=== PATIENT | female | born 1950 | race Caucasian/White ===

== ENCOUNTER → 2016-11-07 | Outpatient (CLI) | payer MEDICARE, BC ==
--- NOTE | 2016-11-07 14:07 | BD ---
EXAMINATION TYPE: MG DEXA axial skeleton. DATE OF EXAM: 11/07/2016 COMPARISON: NONE CLINICAL HISTORY: Z78.0 post menopausal Height: 63 Weight: 136.2 FRAX RISK QUESTIONS: Alcohol (3 or more units per day): NO Family History (Parent hip fracture): YES /MOTHER Glucocorticoids (More than 3mos): NO (Ex: prednisone, prednisolone, methylprednisolone, dexamethasone, and hydrocortisone). History of Fracture in Adulthood: NO Secondary Osteoporosis: 1. Type 1 Diabetes: NO 2. Hyperthyroidism: NO 3. Menopause before 45: NO 4. Malnutrition: NO 5. Chronic liver disease: NO Rheumatoid Arthritis: NO Current Tobacco Use: NO RISK FACTORS HISTORY OF: Hip Fracture (Right/Left): NO Spine Fracture: NO History of Wrist Fracture: NO Surgery to Spine/Hip(right/left)/Wrist (right/left): NO Family History of Osteoporosis: YES Active: YES Diet low in dairy products/other sources of calcium: YES Postmenopausal woman: AGE 50 Lost more than 2 inches in height since high school: NO Frequent falls: NO Poor Health: NO Hyperparathyroidism: NO Adrenal Insufficiency: NO MEDICATIONS: ADAVAN, TOPOROL, VIT D, Thyroid Medications: LEVATHYROXINE How Lon YEARS Osteoporosis Medications: ALENDRONATE How Lon YEARS EXAM MEASUREMENTS: Bone mineral densitometry was performed using the [employer] System. Bone mineral density as measured about the Lumbar spine is: ----- L1-L4(G/cm2): 1.021 T Score Values are as follows: ----- L2: -2.1 ----- L3: -1.0 ----- L4: -0.2 ----- L1-L4: -1.3 Bone mineral density has: INCREASED 1.4 % since study of06.03.2014 Bone mineral density about the R hip (g/cm2): 0.833 Bone mineral density about the L hip (g/cm2): 0.783 T Score values are as follows: -----R Neck: -1.5 -----L Neck: -1.7 -----R Total: -1.4 -----L Total: -1.7 Bone mineral density has: INCREASED 0.9 % since study of: 06.03.2014 Bone mineral density about the R Wrist (g/cm2): Bone mineral density about the L Wrist (g/cm2): T Score values are as follows: -----Dist. R+U: -----Prox. R+U: -----Radius total: Bone mineral density has: % since study of: IMPRESSION: Osteopenia NOTE: T-SCORE=SD OF THE YOUNG ADULT MEAN.
--- NOTE | 2016-11-08 11:13 | MM ---
Reason for exam: screening (asymptomatic). Last mammogram was performed 1 year and 2 months ago. History: Patient is postmenopausal. Family history of breast cancer in maternal aunt. Physical Findings: A clinical breast exam by your physician is recommended on an annual basis and results should be correlated with mammographic findings. MG Screening Mammo w CAD Bilateral CC and MLO view(s) were taken. Prior study comparison: August 28, 2015, bilateral MG 3d screening mammo w/cad. July 19, 2014, mammogram, performed at [facility]. The breast tissue is heterogeneously dense. This may lower the sensitivity of mammography. There is no discrete abnormality. ASSESSMENT: Negative, BI-RAD 1 RECOMMENDATION: Routine screening mammogram of both breasts in 1 year.
== END | disposition home or self-care (01) ==
LOC: RADMAMWWP 13:11
PROVIDERS: ATTEND Family Medicine
DX: Z12.31 Encounter for screening mammogram for malignant neoplasm of breast (principal); M85.80 Other specified disorders of bone density and structure, unspecified site; E28.319 Asymptomatic premature menopause
CPT/HCPCS: 77080; G0202

== ENCOUNTER 2017-04-01 07:14 | Day surgery (SDC) | payer MEDICARE, BC, OTHER ==
[2017-03-24 12:10] VITALS: BMI 24.7
[~2017-04-01 07:14] MED LIST: LACTATED RINGERS 1,000 ML IV SCH
[2017-04-01] MEDS ORDERED: ONDANSETRON 4 MG/2 ML VIAL IVP STA (07:59)
[2017-04-01 08:07] VITALS: RESP 18; TEMP 97.9
[2017-04-01] MEDS: CYCLOPENTOLATE 1% OPHTH SOLN 2 ML BTL OP ONE ×3 (08:09→08:30)
[2017-04-01] MEDS: FLURBIPROFEN 0.03% OPHTH DROPS 2.5 ML BTL OP ONE ×3 (08:12→08:33)
[2017-04-01] MEDS: PHENYLEPHRINE 10% OPHTH DROPS 5 ML BTL OP ONE ×3 (08:16→08:37)
[2017-04-01] MEDS ORDERED: PROPOFOL 10 MG/ML 20 ML VIAL IV ONE (08:53)
[2017-04-01] MEDS ORDERED: TIMOLOL 0.5% OPHTH DROPS 5 ML BTL ONE (09:00)
[2017-04-01] MEDS ORDERED: BALANCED SALT IRRIG SOLN COMB2 15 ML IRRIG.SOLN INTRAOCULA ONE (09:06)
[2017-04-01] MEDS ORDERED: HYALURONATE SODIUM INTRAOCULAR 1 EACH SYRINGE (10MG/ML) INTRAOCULA ONE (09:06)
[2017-04-01] MEDS ORDERED: EPINEPHrine (PF) 0.5 ML in BALANCED SALT IRRIG SOLN COMB2 500 ML IRRIGATION ONE (09:07)
--- NOTE | 2017-04-01 09:15 | P.OP ---
Date of Procedure: 04/01/17 Procedure(s) Performed: PREOPERATIVE DIAGNOSIS: Cataract, left eye. POSTOPERATIVE DIAGNOSIS: Cataract, left eye. OPERATION: Phacoemulsification cataract, left eye. DESCRIPTION OF PROCEDURE: The patient was taken to the preoperative holding area. Intravenous Propofol was given so as to bring about adequate sedation. The following mixture was given for local anesthesia: 5 mL of 2% lidocaine, 5 mL of 0.75% Marcaine, and 1 mL of Wydase. Approximately 4 mL was injected in the retrobulbar space of the surgical eye. Additional 1 mL was then directed to the temporal area of the surgical eye. This was performed to allow adequate neurological block of the facial muscles. The patient was revived and then taken into the operative room. The patient was prepped and draped in the usual sterile manner for the operative eye. A lid speculum was put into position. The conjunctiva was resected back from the limbus in the 12 o'clock position. Bleeding was controlled with electrocautery. A #69 blade was then used and a half-thickness scleral incision approximately 1-mm posterior to the limbus was made on bare sclera. This was shelved in the clear cornea using a crescent knife. Next a 15-degree blade was used to make a stab incision at the 3 o' clock position at the corneolimbal interface. Keratome blade was then used and the superior wound was extended into the anterior chamber. Viscoelastic was injected into the anterior chamber and to maintain its form. Next, a cystotome was used and a continuous anterior capsulotomy was made without difficulty. Hydrodissection using a blunt cannula and BSS was performed. Phaco probe was then employed and a groove extending from 12 to 6 o'clock in the lens was created. A Elian wand was used through the stab incision so as to perform a divide and conquer technique. Next an irrigation aspiration probe was utilized and any residual cortex was removed from the eye. Again, viscoelastic was injected into the anterior chamber. An Ciro Restor 2.5 posterior chamber lens implant was placed in the cartridge and injected into the anterior chamber without difficulty. The Sinskey hook was utilized to spin the lens into position and this was again performed without any difficulty. The irrigation and aspiration probe was again employed and any residual viscoelastic was removed from the eye. Then BSS was injected into the limbal stab incision and the anterior chamber re-inflated. The conjunctiva was reapproximated using electrocautery. One drop of 0.25% Timoptic was placed over the corneal along with TobraDex ophthalmic ointment. Two sterile patches and a Hargrove eye shield were taped into position. The patient was transported to the recovery room in stable condition. Pathology: none sent Condition: stable Disposition: same day
[2017-04-01 09:36] VITALS: BP 125/82; PULSE 56
[2017-04-01] MEDS ORDERED: GENTAMICIN/PREDNISOL AC OPHTH OINT 3.5GM OPHTHALMIC ONE (23:00)
[2017-04-01] MEDS ORDERED: BUPIVACAINE (PF) 0.75% 5 ML, HYALURONIDASE, HUMAN RECOMB 150 UNIT, LIDOCAINE 2% (PF) 10... MISCELLANE ONE ×3 (23:00)
[2017-04-01] MEDS ORDERED: TIMOLOL 0.5% OPHTH DROPS 5 ML BTL OP ONE (23:00)
== END 2017-04-01 09:54 | disposition home or self-care (01) ==
LOC: OR 07:14
PROVIDERS: ATTEND Ophthalmology
DX: H26.9 Unspecified cataract (principal); I49.9 Cardiac arrhythmia, unspecified; I48.91 Unspecified atrial fibrillation; Z79.82 Long term (current) use of aspirin; Z79.899 Other long term (current) drug therapy; Z88.2 Allergy status to sulfonamides
CPT/HCPCS: 66984; V2632; V2788; J3470; J2001; J2405; J0171; J2704

== ENCOUNTER 2017-06-28 17:46 | Emergency (ER) | payer MEDICARE, BC ==
[2017-06-28 17:52] VITALS: RESP 18
[2017-06-28] MEDS ORDERED: diphenhydrAMINE 50 MG/ML 1 ML VIAL IVP STA (18:38)
[2017-06-28] MEDS ORDERED: ACETAMINOPHEN TAB 500 MG TAB PO STA (18:38)
[2017-06-28] MEDS ORDERED: SODIUM CHLORIDE 0.9% 1,000 ML IV STA (18:38)
[2017-06-28] MEDS ORDERED: METOCLOPRAMIDE 5 MG/ML 2 ML VIAL IVP STA (18:38)
--- NOTE | 2017-06-28 18:40 | ED ---
Headache HPI - General Chief Complaint: Headache Stated Complaint: headache Time Seen by Provider: 06/28/17 18:29 Mode of arrival: ambulatory Limitations: no limitations - History of Present Illness Initial Comments: Patient is a 67-year-old female with a past medical history of chronic migraines that presents to emergency department for evaluation of headache. Patient states that she started to have a headache on Friday which resolved and then it came back on . At that time, she took sumatriptan and Fioricet and that again resolved the headache. However, she again gradually had a right- sided headache that started this morning and is associated with nausea. She says that characteristics of the headache is typical but the intensity is a little bit worse normal. The pain feels a burning sensation and it is not associated with any lightheadedness, dizziness, changes in vision, neck pain, chest pain, shortness of breath, vomiting or diarrhea - Related Data Home Medications Medication Instructions Recorded Confirmed Alendronate Sodium 70 mg PO MO 03/24/17 06/28/17 Aspirin EC [Ecotrin] 325 mg PO HS 03/24/17 06/28/17 Calcium Carbonate/Vitamin D3 2 each PO BID 03/24/17 06/28/17 [Caltrate 600 Plus D3 Tablet] Cholecalciferol (Vitamin D3) 50,000 unit PO MANZO 03/24/17 06/28/17 [Vitamin D3] Levothyroxine Sodium [Synthroid] 125 mcg PO QAM 03/24/17 06/28/17 Metoprolol Succinate (ER) [Toprol 25 mg PO HS 03/24/17 06/28/17 Xl] Multivit with Calcium,Iron,Min 1 each PO DAILY 03/24/17 06/28/17 [Women's Multivitamin] Pinedale-3 Fatty Acids [Pinedale-3] 1,000 mg PO DAILY 03/24/17 06/28/17 Allergies Allergy/AdvReac Type Severity Reaction Status Date / Time Sulfa (Sulfonamide Allergy Rash/Hives Verified 06/28/17 17:52 Antibiotics) Review of Systems ROS Statement: Those systems with pertinent positive or pertinent negative responses have been documented in the HPI. Constitutional: Negative for chills, fatigue and fever. HENT: Negative for congestion. Respiratory: Negative for chest tightness, shortness of breath and wheezing. Negative for cough Cardiovascular: Negative for chest pain and palpitations. Gastrointestinal: Negative for abdominal pain. Negative for abdominal distention , diarrhea, and vomiting. Positive for nausea Genitourinary: Negative for dysuria. Musculoskeletal: Negative for back pain, neck pain and neck stiffness. Skin: Negative for color change. Neurological: Negative for dizziness, speech difficulty, weakness and light- headedness. Positive for headache Psychiatric/Behavioral: Negative for agitation and confusion. The patient is not nervous/anxious. ROS Other: All systems not noted in ROS Statement are negative. Past Medical History Past Medical History: Atrial Fibrillation, Thyroid Disorder Additional Past Medical History / Comment(s): migraines headache, paroxysmal atrial fibrillation,MNG,hypothyroidism. History of Any Multi-Drug Resistant Organisms: None Reported Additional Past Surgical History / Comment(s): oopherectomy Past Anesthesia/Blood Transfusion Reactions: No Reported Reaction Additional Past Anesthesia/Blood Transfusion Reaction / Comment(s): NEVER HAD TRANSFUSION Past Psychological History: No Psychological Hx Reported Smoking Status: Never smoker - Past Family History Mother Family Medical History: Hypertension Additional Family Medical History / Comment(s): FROM AMOLOIDOSIS- VITAL ORGAN SHUTDOWN Father Family Medical History: COPD, Deep Vein Thrombosis (DVT) Sister(s) Family Medical History: Cancer Additional Family Medical History / Comment(s): non hodgkins lymphoma Daughter(s) Family Medical History: No Reported History (One daughter no major medical problems.) Son(s) Family Medical History: No Reported History (One son no major medical problem.) General Exam - General Exam Comments Initial Comments: Constitutional: Pt is oriented to person, place, and time. Pt appears well- developed and well-nourished. No distress. HENT: Head: Normocephalic and atraumatic. Eyes: EOM are normal. Neck: Normal range of motion. Neck supple. Cardiovascular: Normal rate, regular rhythm, S1 normal, S2 normal and normal heart sounds. Exam reveals no gallop and no friction rub. No murmur heard. Pulmonary/Chest: Effort normal and breath sounds normal. No tachypnea and no bradypnea. No respiratory distress. No wheezes or rales noted. Abdominal: Soft. Bowel sounds are normal. Pt exhibits no shifting dullness, no distension, no pulsatile liver, no fluid wave, no abdominal bruit and no ascites. There is no tenderness. There is no rigidity, no rebound, no guarding, no tenderness at McBurney's point and negative Martínez's sign. Musculoskeletal: Normal range of motion. Neurological: Pt is alert and oriented to person, place, and time. No cranial nerve deficit. Skin: Skin is warm and dry. No rash noted. Pt is not diaphoretic. No erythema. No pallor. Psychiatric: Pt has a normal mood and affect. Pt behavior is normal. Thought content normal. Limitations: no limitations Course Vital Signs 06/28/17 17:49 Temperature 98.6 F Pulse Rate 88 Respiratory 18 Rate Blood Pressure 161/71 O2 Sat by Pulse 98 Oximetry Medical Decision Making - Medical Decision Making Patient was given fluids as well as Reglan and Benadryl and stated that the symptoms completely disappeared. Because this was not a thunderclap headache and the symptoms were typical of her prior migraine, it was felt that CT imaging of the head was not necessary. However, the risk of foregoing imaging was discussed with the patient and her and it was mutually agreed upon that there was a low likelihood that this is an emergent pathology such as subarachnoid hemorrhage and that all parties felt comfortable not pursuing advanced imaging. The patient and her were vigorously counseled to return to the emergency department if the headache returned and worsened and/or she started experiencing symptoms such as but not limited to, blurry vision, dizziness, other neurologic deficits. Patient and expressed understanding. She was also advised that she should follow up with her PCP on Friday which she was agreeable to. Disposition Clinical Impression: Headache Disposition: HOME SELF-CARE Condition: Good Instructions: Acute Headache (ED) Is patient prescribed a controlled substance at d/c from ED?: No Referrals: Lowell Llanes DO [Primary Care Provider] - 1-2 days Time of Disposition: 20:00
[2017-06-28 20:24] VITALS: BP 111/59; PULSE 78; TEMP 98
== END 2017-06-28 20:24 | disposition home or self-care (01) ==
LOC: EC 17:46
DX: R51 Headache (principal); R11.0 Nausea; R20.8 Other disturbances of skin sensation; E03.9 Hypothyroidism, unspecified; Z86.69 Personal history of other diseases of the nervous system and sense organs; Z88.2 Allergy status to sulfonamides; Z79.82 Long term (current) use of aspirin; Z79.899 Other long term (current) drug therapy
CPT/HCPCS: 99283; 96374; 96375; 96361; J1200; J2765

== ENCOUNTER → 2017-11-10 | Outpatient (CLI) | payer MEDICARE, BC ==
--- NOTE | 2017-11-12 09:50 | MM ---
Reason for exam: screening (asymptomatic). Last mammogram was performed 1 year ago. History: Patient is postmenopausal. Family history of breast cancer in maternal aunt. Physical Findings: A clinical breast exam by your physician is recommended on an annual basis and results should be correlated with mammographic findings. MG 3D Screening Mammo W/Cad Bilateral CC and MLO view(s) were taken. Prior study comparison: November 07, 2016, bilateral MG screening mammo w CAD. August 28, 2015, bilateral MG 3d screening mammo w/cad. The breast tissue is heterogeneously dense. This may lower the sensitivity of mammography. There is no discrete abnormality. ASSESSMENT: Negative, BI-RAD 1 RECOMMENDATION: Routine screening mammogram of both breasts in 1 year.
== END | disposition home or self-care (01) ==
LOC: RADMAMWWP 09:23
PROVIDERS: ATTEND Family Medicine
DX: Z12.31 Encounter for screening mammogram for malignant neoplasm of breast (principal)
CPT/HCPCS: 77063; 77067

== ENCOUNTER → 2019-01-14 | Outpatient (CLI) | payer MEDICARE, BC ==
--- NOTE | 2019-01-15 07:14 | BD ---
EXAMINATION TYPE: Axial Bone Density DATE OF EXAM: 01/14/2019 COMPARISON: 2017 CLINICAL HISTORY: M 81.0 Height: 5 FT 2 IN Weight: 129 FRAX RISK QUESTIONS: Family History (Parent hip fracture): YES History of Fracture in Adulthood: YES Secondary Osteoporosis: RISK FACTORS HISTORY OF: Active: YES Postmenopausal woman: AGE 50 Take estrogen and/or progesterone medications: TOOK HRT NOT SURE HOW LONG NO LONGER TAKES MEDICATIONS: Thyroid Medications: YES Which medication: SYNTHROID How Lon YEARS Additional Medications: METOPROLOL, SYNTHROID, ECOTRIN, LORAZAPAM, B COMPLEX, FISH OIL,CALTRATE, MUL TI VIT Additional History: HAS BEEN ON ALDRONATE FOR 3 YEARS EXAM MEASUREMENTS: Bone mineral densitometry was performed using the [employer]. Bone mineral density as measured about the Lumbar spine is: ----- L1-L4(G/cm2): 1.036 T Score Values are as follows: ----- L2: -1.9 ----- L3: -1.5 ----- L4: 0.6 ----- L1-L4: -1.2 Bone mineral density has: INCREASED 1.9 % since study of: 2017 Bone mineral density about the R hip (g/cm2): 0.834 Bone mineral density about the L hip (g/cm2): 0.803 T Score values are as follows: -----R Neck: -1.5 -----L Neck: -1.7 -----R Total: -1.5 -----L Total: -1.7 Bone mineral density has: DECREASED -1.0 % since study of: 2017 IMPRESSION: Osteopenia (T Score between -2.5 and -1). There is slightly increased risk of fracture and the patient may be considered for treatment. Re-Screen 2-5 years. NOTE: T-SCORE=SD OF THE YOUNG ADULT MEAN.
--- NOTE | 2019-01-15 10:54 | MM ---
Reason for exam: screening (asymptomatic). Last mammogram was performed 1 year and 2 months ago. History: Patient is postmenopausal. Family history of breast cancer in maternal aunt. Physical Findings: A clinical breast exam by your physician is recommended on an annual basis and results should be correlated with mammographic findings. MG 3D Screening Mammo W/Cad Bilateral CC and MLO view(s) were taken. Prior study comparison: November 10, 2017, bilateral MG 3d screening mammo w/cad. November 07, 2016, bilateral MG screening mammo w CAD. The breast tissue is heterogeneously dense. This may lower the sensitivity of mammography. There is no discrete abnormality. No significant changes when compared with prior studies. ASSESSMENT: Negative, BI-RAD 1 RECOMMENDATION: Routine screening mammogram of both breasts in 1 year.
== END | disposition home or self-care (01) ==
LOC: RADMAMWWP 08:06
PROVIDERS: ATTEND Family Medicine
DX: Z12.31 Encounter for screening mammogram for malignant neoplasm of breast (principal); M85.80 Other specified disorders of bone density and structure, unspecified site
CPT/HCPCS: 77063; 77067; 77080

== ENCOUNTER → 2020-03-16 | Outpatient (CLI) | payer MEDICARE, BC ==
--- NOTE | 2020-03-17 14:31 | MM ---
Reason for exam: screening (asymptomatic). Last mammogram was performed 1 year and 2 months ago. History: Patient is postmenopausal. Family history of breast cancer in maternal aunt. Physical Findings: A clinical breast exam by your physician is recommended on an annual basis and results should be correlated with mammographic findings. MG 3D Screening Mammo W/Cad Bilateral CC and MLO view(s) were taken. Prior study comparison: January 14, 2019, bilateral MG 3d screening mammo w/cad. November 10, 2017, bilateral MG 3d screening mammo w/cad. The breast tissue is heterogeneously dense. This may lower the sensitivity of mammography. There is no discrete abnormality. ASSESSMENT: Negative, BI-RAD 1 RECOMMENDATION: Routine screening mammogram of both breasts in 1 year.
== END | disposition home or self-care (01) ==
LOC: RADMAMWWP 15:48
PROVIDERS: ATTEND Family Medicine
DX: Z12.31 Encounter for screening mammogram for malignant neoplasm of breast (principal)
CPT/HCPCS: 77063; 77067

== ENCOUNTER → 2022-03-12 | Outpatient (CLI) | payer MEDICARE ==
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
== END | disposition home or self-care (01) ==
LOC: RADXRMAIN 09:44
PROVIDERS: ATTEND Family Medicine
DX: S02.2XXA Fracture of nasal bones, initial encounter for closed fracture (principal); S13.4XXA Sprain of ligaments of cervical spine, initial encounter; M47.812 Spondylosis without myelopathy or radiculopathy, cervical region; M43.12 Spondylolisthesis, cervical region; M99.71 Connective tissue and disc stenosis of intervertebral foramina of cervical region; R07.9 Chest pain, unspecified; V89.2XXA Person injured in unspecified motor-vehicle accident, traffic, initial encounter
CPT/HCPCS: 70160; 71046; 72050

== ENCOUNTER → 2022-03-21 | Outpatient (CLI) | payer OTHER, MEDICARE ==
[2022-03-21 17:06] LABS: African American GFR (CKD) >90 (>60 ml/min/1.73 sqM); Blood Urea Nitrogen 23 mg/dL (7-17); Non-African American GFR(CKD) 82 (>60 ml/min/1.73 sqM)
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
== END | disposition home or self-care (01) ==
LOC: RADCTMAIN 16:32
PROVIDERS: ATTEND Family Medicine
DX: S13.4XXA Sprain of ligaments of cervical spine, initial encounter (principal)
CPT/HCPCS: 82565; 84520; 70460; 36415; Q9967

== ENCOUNTER 2022-06-04 06:52 | Day surgery (SDC) | payer OTHER ==
[2022-05-31 15:43] VITALS: BMI 21.2
[~2022-06-04 06:52] MED LIST changes: +LIDOCAINE 1% (10MG/ML) FOR IV START INTRADERMA PRN
[2022-06-04 07:20] VITALS: TEMP 97.7
[2022-06-04] MEDS ORDERED: fentaNYL (PF) 50 MCG/ML 2 ML AMP ONE (07:47)
[2022-06-04] MEDS ORDERED: MIDAZOLAM 2 MG/2 ML VIAL ONE (07:47)
[2022-06-04] MEDS ORDERED: methylPREDNISolone ACETATE 40 MG/ML 1 ML VIAL ONE (07:47)
[2022-06-04] MEDS ORDERED: IOPAMIDOL M200 10 ML VIAL ONE (07:47)
[2022-06-04] MEDS ORDERED: IV FLUID CONTINUATION 1,000 ML IV ONE (08:05)
[2022-06-04 08:09] VITALS: RESP 15
--- NOTE | 2022-06-04 08:17 | FL ---
Fluoroscopy History: BILAT TRANSFORAMINAL EPI INJ 5 sec fl time used .[id number] DAP --CS
[2022-06-04 08:34] VITALS: BP 121/70; PULSE 62
== END 2022-06-04 08:39 | disposition home or self-care (01) ==
LOC: ORPAIN 06:52
PROVIDERS: ATTEND Specialist
DX: M51.16 Intervertebral disc disorders with radiculopathy, lumbar region (principal); M47.26 Other spondylosis with radiculopathy, lumbar region; Z88.2 Allergy status to sulfonamides
CPT/HCPCS: 99152; 64483; J2250; J1030; J3010; Q9966

== ENCOUNTER → 2022-06-07 | Outpatient (CLI) | payer OTHER ==
--- NOTE | 2022-06-04 08:03 | P.PCN ---
Date of Procedure: 06/04/22 Procedure(s) Performed: PREOPERATIVE DIAGNOSIS: 1-Lumbar radiculopathy . 2-lumbar degenerative disc disease. 3-lumbar spondylosis with lumbar facet arthropathy without myelopathy POSTOPERATIVE DIAGNOSIS: 1-lumbar radiculopathy. 2-lumbar degenerative disc disease. 3-lumbar spondylosis with facet arthropathy without myelopathy PROCEDURE 1. Transforaminal epidural steroid injection under fluoroscopic guidance at bilateral L4-5 level. (Fluoroscopy images stored on file in the radiology Department ) 2. Lumbar epidurogram . ANESTHESIA: Local with 1% lidocaine 3 ml , moderate sedation with intravenous Versed 1 mg and fentanyle 50 micrograms. Sedation start time :0750 . Sedation. stop time : 0800 . EBL: Minimal PROCEDURE INDICATION: The patient with low back pain and radiculopathy symptoms unresponsive to conservative treatment. PROCEDURE DESCRIPTION / TECHNIQUE: The patient was seen and identified in the preoperative area. Risks, benefits, complications, and alternatives were discussed with the patient. The patient agreed to proceed with the procedure and signed the consent. IV was started, and vital signs were stable. Patient was taken to the OR and time out was completed. The patient was placed in the prone position on procedure table and a pillow was placed under the abdomen to reduce lumbar lordosis. The lumbosacral area was prepped and draped in the usual sterile fashion. Critical pause was taken. Vital signs were closely monitored during the procedure. Conscious sedation was used during the procedure to decrease patient s anxiety. Using oblique fluoroscopy, the chin of the `Bernarday dog at right L4-5 level was identified, and the skin and deeper tissues just below was localized with 1% lidocaine. Subsequently, a 22-gauge 3.5-inch spinal needle was advanced under a tunneled view fluoroscopic guidance just underneath the chin of the `Bernarday dog at the right L4-5 Under lateral fluoroscopy, the needle was then advanced to the posterior border of the interforaminal space. After negative aspiration of CSF and blood and with no paresthesias, 1 mL Isovue 200 contrast dye was injected excellent epidurogram and outlining of the nerve root Subsequently, 3 mL of block solution containing 20 mg Depo-Medrol and 2 mL of 0.9% normal saline PF was injected. Needle was removed and the same procedure was repeated at the left L4-5 level . At the end of the procedure, skin was cleansed, and bandages were applied. COMPLICATIONS:none DISPOSITION / PLANS: The patient was placed in a supine position and transferred to the recovery area in a stable condition for observation. There was no evidence of lower extremity motor or sensory deficit after the procedure. Patient was discharged from the recovery room after meeting discharge criteria. Home discharge instructions were given to the patient by the staff. The patient was reexamined prior to discharge.
--- NOTE | 2022-06-10 15:26 | MM ---
Reason for Exam: Screening (asymptomatic). Last screening mammogram was performed 12 month(s) ago. Patient History: Menarche at age 13. First Full-Term at age 21. Postmenopausal. Patient has history of breast feeding. Patient used Estrogen and Progesterone for 2 years. Maternal aunt had breast cancer. Risk Values: Christy 5 year model risk: 1.6%. NCI Lifetime model risk: 4.1%. Prior Study Comparison: 01/14/2019 Bilateral Screening Mammogram, [facility]. 03/16/2020 Bilateral Screening Mammogram, [facility]. 06/06/2021 Bilateral Screening Mammogram, [facility]. Tissue Density: There are scattered fibroglandular densities. Findings: Analyzed By CAD. Pattern appears symmetrical and stable. No significant interval change is evident. No suspicious groups of microcalcifications, spiculated or lobular masses, architectural distortion or other secondary signs of malignancy are mammographically apparent. Overall Assessment: Benign, BI-RAD 2 Management: Screening Mammogram of both breasts in 1 year. A negative mammogram report should not preclude additional follow up of suspicious palpable abnormalities. Patient should continue monthly self breast exam. A clinical breast exam by your physician is recommended on an annual basis and results should be correlated with mammographic findings. Electronically signed and approved by: Jerod Escalante D.O. Radiologis
== END | disposition home or self-care (01) ==
LOC: RADMAMWWP 07:49
PROVIDERS: ATTEND Family Medicine
DX: Z12.31 Encounter for screening mammogram for malignant neoplasm of breast (principal); Z78.0 Asymptomatic menopausal state; Z80.3 Family history of malignant neoplasm of breast
CPT/HCPCS: 77063; 77067

== ENCOUNTER → 2022-06-27 | Outpatient (CLI) | payer OTHER ==
[2022-06-27 11:24] VITALS: BP 111/61; PULSE 73; RESP 16; TEMP 98.2
--- NOTE | 2022-06-27 13:52 | P.PAINPG ---
PQRS Measure Charge Sheet Comment: A 72 yr old female with a history of severe and chronic LBP secondary to lumbar DDD and spondylosis with facet arthropathy without myelopathy presents today for evaluation s/p BL TFESI L4-L5. Pt states she experienced 75 % pain relief x 2-3 wks s/p procedure. Pain level is provoked at 6/10 in intensity, constant, localized in the lumbar spine, dull in character w shooting towards the L hip and LLE. Pain is provoked by sitting for periods of 30 min or more. Pain is alleviated with injections, medications, heat wraps, PT 6 weeks in February 21, massage therapy integrated with PT, repositioning and rest. Interventional pain procedures completed include BL TFESI L4-L5 Patient is currently on Tyl Arthritis Patient denies any side effects of the medication(s), denies excessive drowsiness or sleepiness, denies suicidal ideation and reports that the current pain medication is helping to control the pain and improve activities of daily living. Patient denies any motor or sensory deficits. Patient denies any fever or night sweats, denies any change in the bowel movements or urination. Physical Examination: -Constitutional: Cooperative. Not in acute distress . - Neurologic: Cranial nerve II to XII intact. No focal neurological deficits. - Psychatric: Alert & oriented x 3. Matching mood & appropriate affect. Judgment and insight intact. - Musculoskeletal: Cervical spine: Muscle bulk/ tone/ strength in the bilateral upper extremities normal Vertebral body tenderness to palpation over Spurling test positive Distraction test positive Facet loading test positive TTP Thoracic spine Muscle bulk / tone/ strength in the bilateral paraspinal muscles normal Vertebral body tender to palpation over Facet loading test positive TTP Lumbar spine: Motor bulk/ tone/ strength lower extremities , thigh and legs : 5/5 Deep tendon reflexes : Normal Knee Jerk. Normal Ankle Jerk . Vertebral body tenderness to palpation over L2 Lumbar Facet Loading Test positive Straight Leg Raise: positive at 30 degrees right side/ left side Gaenslen's Test positive Sacral spine : Severe tenderness over the Sacroiliac joint: right side / left side Range of motion: Flexion of the lumbar spine <60 degrees Range of motion: Extension of the lumbar spine <20 degrees Gaenslen's Test positive right side / left side Aleyda test: positive right side / left side Thigh Thrust Test positive right side / left side Sacral Thrust Test positive right side / left side Assessment and plan: Chronic LBP secondary to lumbar DDD, spondylosis with facet arthropathy without myelopathy Recommendation of L TFESI L1-L2 #2. May need additional injections for optimal pain relief. Risks, benefits of procedure discussed and pt verbalized understanding. Admits to anticoagulant use or medical history of diabetes. Protocol for discontinuation/ continuation of medications anamaria procedure discussed. All questions answered. I have spent less than 30 minutes on patient care today. Dr Dixon was available by phone for the evaluation of this patient. The time was used to review the medical records including relevant urine studies and Prescription history (MAPs), review of the available imaging, evaluation and examination of the patient, coordination of care with the medical staff and if applicable referring physicians, as well as creation of the medical record PQRS Narrative: Smoking Status Never smoker Hx Alcohol Use (MH) No Home Medications: Ambulatory Orders Alendronate Sodium 70 mg PO MANZO 03/24/17 Aspirin EC [Ecotrin] 325 mg PO HS 03/24/17 Metoprolol Succinate (ER) [Toprol Xl] 25 mg PO W/SUPPER 03/24/17 Biotin [Biotin Disolve] 5,000 mcg PO DAILY 05/31/22 Narinder/D3/Mag11/Zinc/[facility] Director/Mega/Bor [Caltrate 600+D Plus Tablet] 2 each PO DAILY 05/31/22 Ergocalciferol [Vitamin D2 (1250 Mcg = 00064 Iu)] 1,250 mcg PO MANZO 05/31/22 LORazepam 1 mg PO HS 05/31/22 Levothyroxine Sodium [Synthroid] 100 mcg PO QAM 05/31/22 Multivitamins, Thera [Multivitamin (formulary)] 1 tab PO DAILY 05/31/22 Triple [place] 3,6,9 1 tab PO TID-W/MEALS 05/31/22 Controlled Substance Measures - Controlled Substance Measures Is patient prescribed a controlled substance at discharge?: No
== END ==
LOC: PNWHC3 08:49
PROVIDERS: ATTEND Specialist
DX: M51.36 Other intervertebral disc degeneration, lumbar region (principal); M47.816 Spondylosis without myelopathy or radiculopathy, lumbar region; G89.29 Other chronic pain; Z79.82 Long term (current) use of aspirin; Z88.2 Allergy status to sulfonamides
CPT/HCPCS: 99211

== ENCOUNTER → 2022-07-31 | Outpatient (CLI) | payer OTHER ==
--- NOTE | 2022-07-31 15:28 | XR ---
EXAMINATION TYPE: XR cervical spine 3 views limited DATE OF EXAM: 07/31/2022 Comparison: 03/12/2022 Clinical History: 73-year-old female M50.30 Other cervical disc degeneration Findings: There is moderate degenerative disc disease C6-C7 and mild to moderate at C5-C6. Remaining disc space s are maintained. Degenerative trace grade 1 retrolisthesis C5-C6. Remaining alignment is maintained. There is facet an d uncovertebral joint arthropathy mid to lower cervical spine redemonstrated. No predental space wide ranjith or prevertebral soft tissue swelling. Impression: Moderate spondylotic change particularly at C6-C7. To a lesser extent at C5-C6 where there is also a trace grade 1 retrolisthesis.
== END | disposition home or self-care (01) ==
LOC: RADXRMAIN 08:42
PROVIDERS: ATTEND Physician Assistant Medical
DX: M50.323 Other cervical disc degeneration at C6-C7 level (principal); M47.812 Spondylosis without myelopathy or radiculopathy, cervical region; M43.12 Spondylolisthesis, cervical region
CPT/HCPCS: 72040

== ENCOUNTER → 2022-07-31 | Outpatient (CLI) | payer OTHER ==
[2022-07-31 08:49] VITALS: BP 128/71; PULSE 72; RESP 18; TEMP 97.8
--- NOTE | 2022-07-31 14:28 | P.PAINPG ---
PQRS Measure Charge Sheet Comment: A 72 yr old female with a history of severe and chronic LBP secondary to lumbar DDD and spondylosis with facet arthropathy without myelopathy presents today for LBP. Pt has had a BL RFA L4-L5, L5-S1 where she admits she experienced 100 % pain relief x 6 yrs s/p procedure in Jun 2015. Pain level is provoked at 6/10 in intensity, constant, localized in the BL lower lumbar spine, achy/ sharp in character w shooting towards the L hip. Pain is provoked by bending, and bearing weight on L side and walking for periods of 10 min or more. Pain is alleviated with PT w massage x 6 wks in Mar 2022, medications, patches, repositioning and rest. Pt also admits to lower neck pain, 8/10 in intensity, dull, achy, constant w radiation up the L side of neck towards the head. She admits to CESIs in 2018 which alleviated the pain at the time. Interventional pain procedures completed include BL TFESI L1-L2, BL RFA L2-L5 Patient is currently on Tyl Arthritis Patient denies any side effects of the medication(s), denies excessive drowsiness or sleepiness, denies suicidal ideation and reports that the current pain medication is helping to control the pain and improve activities of daily living. Patient denies any motor or sensory deficits. Patient denies any fever or night sweats, denies any change in the bowel movements or urination. Physical Examination: -Constitutional: Cooperative. Not in acute distress . - Neurologic: Cranial nerve II to XII intact. No focal neurological deficits. - Psychatric: Alert & oriented x 3. Matching mood & appropriate affect. Judgment and insight intact. - Musculoskeletal: Cervical spine: Muscle bulk/ tone/ strength in the bilateral upper extremities normal Vertebral body tenderness to palpation over Spurling test positive Distraction test positive Facet loading test positive TTP Thoracic spine Muscle bulk / tone/ strength in the bilateral paraspinal muscles normal Vertebral body tender to palpation over Facet loading test positive TTP Lumbar spine: Motor bulk/ tone/ strength lower extremities , thigh and legs : 5/5 Deep tendon reflexes : Normal Knee Jerk. Normal Ankle Jerk . Vertebral body tenderness to palpation over Singer Test positive Lumbar Facet Loading Test positive on L4-L5, L5-S1 Straight Leg Raise: positive at 30 degrees right side/ left side Gaenslen's Test positive Sacral spine : Severe tenderness over the Sacroiliac joint: right side / left side Range of motion: Flexion of the lumbar spine <60 degrees Range of motion: Extension of the lumbar spine <20 degrees Gaenslen's Test positive right side / left side Aleyda test: positive right side / left side Thigh Thrust Test positive right side / left side Sacral Thrust Test positive right side / left side Assessment and plan: Chronic LBP secondary to lumbar DDD, spondylosis with facet arthropathy without myelopathy Recommendation of BL RFA L4-L5, L5-S1. Pt exhibited substantial pain relief w prior RFA procedure. Risks, benefits of procedure discussed and pt verbalized understanding. Admits to anticoagulant use or medical history of diabetes. Protocol for discontinuation/ continuation of medications anamaria procedure discussed. Minimal anesthesia provided, if clinically indicated, consisting of Versed and Fentanyl. Cervical x ray re: M50.30. All questions answered. I have spent less than 30 minutes on patient care today. Dr Dixon was available by phone for the evaluation of this patient. The time was used to review the medical records including relevant urine studies and Prescription history (MAPs), review of the available imaging, evaluation and examination of the patient, coordination of care with the medical staff and if applicable referring physicians, as well as creation of the medical record PQRS Narrative: Smoking Status Never smoker Hx Alcohol Use (MH) No Home Medications: Ambulatory Orders Alendronate Sodium 70 mg PO MANZO 03/24/17 Aspirin EC [Ecotrin] 325 mg PO HS 03/24/17 Metoprolol Succinate (ER) [Toprol Xl] 25 mg PO W/SUPPER 03/24/17 Biotin [Biotin Disolve] 5,000 mcg PO DAILY 05/31/22 Narinder/D3/Mag11/Zinc/Craft Demonstrator/Mega/Bor [Caltrate 600+D Plus Tablet] 2 each PO DAILY 05/31/22 Ergocalciferol [Vitamin D2 (1250 Mcg = 53921 Iu)] 1,250 mcg PO MANZO 05/31/22 LORazepam 1 mg PO HS 05/31/22 Levothyroxine Sodium [Synthroid] 100 mcg PO QAM 05/31/22 Multivitamins, Thera [Multivitamin (formulary)] 1 tab PO DAILY 05/31/22 Triple [place] 3,6,9 1 tab PO TID-W/MEALS 05/31/22 Controlled Substance Measures - Controlled Substance Measures Is patient prescribed a controlled substance at discharge?: No
== END ==
LOC: PNWHC3 08:13
PROVIDERS: ATTEND Specialist
DX: M51.37 Other intervertebral disc degeneration, lumbosacral region (principal); M47.817 Spondylosis without myelopathy or radiculopathy, lumbosacral region; G89.29 Other chronic pain; Z79.82 Long term (current) use of aspirin; Z88.2 Allergy status to sulfonamides
CPT/HCPCS: 99211

== ENCOUNTER 2022-09-06 08:22 | Day surgery (SDC) | payer MEDICARE ==
[2022-09-06 09:06] VITALS: TEMP 97
[2022-09-06] MEDS ORDERED: LACTATED RINGERS 1,000 ML IV ONE (09:13)
[2022-09-06] MEDS ORDERED: ROPIVACAINE 5 MG/ML 20 ML AMPULE ONE (09:24)
[2022-09-06] MEDS ORDERED: methylPREDNISolone ACETATE 40 MG/ML 1 ML VIAL ONE (09:24)
[2022-09-06] MEDS ORDERED: fentaNYL (PF) 50 MCG/ML 2 ML AMP ONE (09:24)
[2022-09-06] MEDS ORDERED: MIDAZOLAM 2 MG/2 ML VIAL ONE (09:24)
--- NOTE | 2022-09-06 09:40 | P.PCN ---
Date of Procedure: 09/06/22 Procedure(s) Performed: PREOPERATIVE DIAGNOSIS : 1- Lumbar spondylosis with Facet Arthropathy without myelopathy . 2- Lumber degenerative disc disease POSTOPERATIVE DIAGNOSIS: 1- Lumbar spondylosis with Facet Arthropathy without myelopathy . 2- Lumber degenerative disc disease PROCEDURE: Diagnostic bilateral L3 , L4 , and L5 medial branch block under fluoroscopy guidance(fluoroscopy images available in the radiology Department ) ( To target the facet joint between Bilateral L4- 5 , and L5-S1 )#1st ANESTHESIA:, Monitored anesthesia care as per anesthesia department. EBL: Minimal COMPLICATION: None PROCEDURE INDICATION: Chronic low back pain secondary to Facet arthropathy unresponsive to conservative treatment. PROCEDURE DESCRIPTION: the patient was seen and identified in the preop holding area , risks and benefits and possible complications of the procedure and alternative were discussed with the patient, and the patient agreed to proceed with the procedure and signed the consent and vital signs monitored during the procedure and fluoroscopy was used to maximize the benefit and accuracy of the needle placement, and sedation was given to decrease patient anxiety, patient was taken to the procedure room and placed in prone position vital signs monitored in the back prepped with chlorhexidine X3 then under strict sterile technique using a right oblique fluoroscopy ,the junction of the transverse process and the superior articulating process of the right L3 , L4 , and L5 vertebra which corresponding to the fluoroscopy image of the eye of the [place] dog on the block side for the medial branches and subsequently , after local infiltration of skin and subcu tissuies with Ropivacaine 0.5 % , one mL at each level ,then 22-gauge Quincke-type needles , 3 needle was used , each one of them placed at the junction of the base of the transverse process and the superior articular process at the appropriate level, and the needle was advanced until the periosteum contacted, needle placement confirmed with AP oblique and lateral view and after appropriate needle placement confirmed, and after negative aspiration for heme and CSF and there was no paresthesia 1-1/2 mL of Ropivacaine 0.5% mixed with 20 mg Depo-Medrol , then half mL injected at each level after negative aspiration the needle subsequently removed and the same procedure repeated for the left side at left side at L3 , L4 and L5 levels. At the end of the procedure and the needles removed and a bandage applied after the skin was cleaned the cleaning solution patient taken to recovery room in stable condition and monitors in the recovery room for 20-30 minutes and discharged home in stable condition after discharge criteria met and patient will follow up with the pain clinic in 2-4 weeks
--- NOTE | 2022-09-06 09:52 | FL ---
Intraoperative/procedural fluoroscopic services were provided. Total fluoroscopy time is 13.8 seconds with a total of 4 submitted images to PACS. Please see the operative/procedural note for further det ails. DAP: [id number] mGym2
[2022-09-06] MEDS ORDERED: IV FLUID CONTINUATION 800 ML IV ONE (09:54)
[2022-09-06 10:07] VITALS: BP 100/62; PULSE 65; RESP 16
== END 2022-09-06 10:14 | disposition home or self-care (01) ==
LOC: ORPAIN 08:22
PROVIDERS: ATTEND Specialist
DX: M51.36 Other intervertebral disc degeneration, lumbar region (principal); M47.816 Spondylosis without myelopathy or radiculopathy, lumbar region; G89.29 Other chronic pain; Z88.2 Allergy status to sulfonamides; E03.9 Hypothyroidism, unspecified; Z79.890 Hormone replacement therapy; Z79.82 Long term (current) use of aspirin; Z79.899 Other long term (current) drug therapy
CPT/HCPCS: 64493; 64494 ×2; J2250; J1030; J3010; J2795

== ENCOUNTER → 2022-09-25 | Outpatient (CLI) | payer MEDICARE ==
[2022-09-25 09:10] VITALS: BP 105/65; PULSE 64; RESP 15; TEMP 97.5
--- NOTE | 2022-09-25 13:38 | P.PAINPG ---
PQRS Measure Charge Sheet Comment: A 72 yr old female with a history of severe and chronic LBP secondary to lumbar DDD and spondylosis with facet arthropathy without myelopathy presents today for LBP. Pt has had a BL MBB L4-L5, L5-S1 #1 where she admits she experienced 100 % pain relief x 1 day s/p procedure. Pain level is provoked at 9/10 in intensity, constant, localized in the BL lower lumbar spine, achy/ sharp in character w shooting towards the L hip. Pain is provoked by bending, and bearing weight on L side and walking for periods of 10 min or more. Pain is alleviated with PT w massage x 6 wks in Mar 2022, medications, patches, repositioning and rest. Pt also admits to lower neck pain, 8/10 in intensity, dull, achy, constant w radiation up the L side of neck towards the head. She admits to CESIs in 2018 which alleviated the pain at the time. Oswestry axial pain score of 11. Interventional pain procedures completed include BL TFESI L1-L2, BL MBB L3-L5 x1 Patient is currently on Tyl Arthritis Patient denies any side effects of the medication(s), denies excessive drowsiness or sleepiness, denies suicidal ideation and reports that the current pain medication is helping to control the pain and improve activities of daily living. Patient denies any motor or sensory deficits. Patient denies any fever or night sweats, denies any change in the bowel movements or urination. Physical Examination: -Constitutional: Cooperative. Not in acute distress . - Neurologic: Cranial nerve II to XII intact. No focal neurological defi cits. - Psychatric: Alert & oriented x 3. Matching mood & appropriate affect. Judgment and insight intact. - Musculoskeletal: Cervical spine: Muscle bulk/ tone/ strength in the bilateral upper extremities normal Vertebral body tenderness to palpation over Spurling test positive Distraction test positive Facet loading test positive TTP Thoracic spine Muscle bulk / tone/ strength in the bilateral paraspinal muscles normal Vertebral body tender to palpation over Facet loading test positive TTP Lumbar spine: Motor bulk/ tone/ strength lower extremities , thigh and legs : 5/5 Deep tendon reflexes : Normal Knee Jerk. Normal Ankle Jerk . Vertebral body tenderness to palpation over Singer Test positive Lumbar Facet Loading Test positive on L4-L5, L5-S1 Straight Leg Raise: positive at 30 degrees right side/ left side Gaenslen's Test positive Sacral spine : Severe tenderness over the Sacroiliac joint: right side / left side Range of motion: Flexion of the lumbar spine <60 degrees Range of motion: Extension of the lumbar spine <20 degrees Gaenslen's Test positive right side / left side Aleyda test: positive right side / left side Thigh Thrust Test positive right side / left side Sacral Thrust Test positive right side / left side Assessment and plan: Chronic LBP secondary to lumbar DDD, spondylosis with facet arthropathy without myelopathy Recommendation of BL MBB L4-L5, L5-S1 #2. May need a series of injections, up until RFA, for optimal pain relief. Risks, benefits of procedure discussed and pt verbalized understanding. Admits to anticoagulant use or medical history of diabetes. Protocol for discontinuation/ continuation of medications anamaria procedure discussed. Minimal anesthesia provided, if clinically indicated, consisting of Versed and Fentanyl. Cervical x ray re: M50.30. All questions answered. I have spent less than 30 minutes on patient care today. Dr Dixon was available by phone for the evaluation of this patient. The time was used to review the medical records including relevant urine studies and Prescription history (MAPs), review of the available imaging, evaluation and examination of the patient, coordination of care with the medical staff and if applicable referring physicians, as well as creation of the medical record PQRS Narrative: Smoking Status Never smoker Hx Alcohol Use (MH) No Home Medications: Ambulatory Orders Alendronate Sodium 70 mg PO MANZO 03/24/17 Aspirin EC [Ecotrin] 325 mg PO HS 03/24/17 Metoprolol Succinate (ER) [Toprol Xl] 25 mg PO W/SUPPER 03/24/17 Narinder/D3/Mag11/Zinc/Regulatory Compliance Officer/Mega/Bor [Caltrate 600+D Plus Tablet] 2 each PO DAILY 05/31/22 Ergocalciferol [Vitamin D2 (1250 Mcg = 78899 Iu)] 1,250 mcg PO MANZO 05/31/22 LORazepam 1 mg PO HS 05/31/22 Levothyroxine Sodium [Synthroid] 100 mcg PO QAM 05/31/22 Multivitamins, Thera [Multivitamin (formulary)] 1 tab PO DAILY 05/31/22 Triple [place] 3,6,9 1 tab PO TID-W/MEALS 05/31/22 Controlled Substance Measures - Controlled Substance Measures Is patient prescribed a controlled substance at discharge?: No
== END ==
LOC: PNWHC3 08:38
PROVIDERS: ATTEND Specialist
DX: M51.37 Other intervertebral disc degeneration, lumbosacral region (principal); M47.817 Spondylosis without myelopathy or radiculopathy, lumbosacral region; G89.29 Other chronic pain; Z79.82 Long term (current) use of aspirin; Z88.2 Allergy status to sulfonamides
CPT/HCPCS: 99211

== ENCOUNTER → 2022-10-10 | Day surgery (SDC) | payer MEDICARE ==
[~2022-10-10] MED LIST changes: +IV FLUID CONTINUATION 1,000 ML IV ONE; +LACTATED RINGERS 1,000 ML IV ONE; +MIDAZOLAM 2 MG/2 ML VIAL ONE; +ROPIVACAINE 5 MG/ML 20 ML AMPULE ONE; +fentaNYL (PF) 50 MCG/ML 2 ML AMP ONE; +methylPREDNISolone ACETATE 40 MG/ML 1 ML VIAL ONE
[2022-10-10 08:05] VITALS: TEMP 97
--- NOTE | 2022-10-10 08:50 | P.PCN ---
Date of Procedure: 10/10/22 Procedure(s) Performed: PREOPERATIVE DIAGNOSIS : 1- Lumbar spondylosis with Facet Arthropathy without myelopathy . 2- Lumber degenerative disc disease POSTOPERATIVE DIAGNOSIS: 1- Lumbar spondylosis with Facet Arthropathy without myelopathy . 2- Lumber degenerative disc disease PROCEDURE: Diagnostic bilateral L3 , L4 , and L5 medial branch block under fluoroscopy guidance(fluoroscopy images available in the radiology Department ) ( To target the facet joint between Bilateral L4- 5 , and L5-S1 )#2nd ANESTHESIA:, Moderate sedation with Versed 1 mg and fentanyl 50 g, sedation started at 08:37 ,ended at 08:47 EBL: Minimal COMPLICATION: None PROCEDURE INDICATION: Chronic low back pain secondary to Facet arthropathy unresponsive to conservative treatment. PROCEDURE DESCRIPTION: the patient was seen and identified in the preop holding area , risks and benefits and possible complications of the procedure and alternative were discussed with the patient, and the patient agreed to proceed with the procedure and signed the consent and vital signs monitored during the procedure and fluoroscopy was used to maximize the benefit and accuracy of the needle placement, and sedation was given to decrease patient anxiety, patient was taken to the procedure room and placed in prone position vital signs monitored in the back prepped with chlorhexidine X3 then under strict sterile technique using a right oblique fluoroscopy ,the junction of the transverse process and the superior articulating process of the right L3 , L4 , and L5 vertebra which corresponding to the fluoroscopy image of the eye of the [place] dog on the block side for the medial branches and subsequently , after local infiltration of skin and subcu tissuies with Ropivacaine 0.5 % , one mL at each level ,then 22-gauge Quincke-type needles , 3 needle was used , each one of them placed at the junction of the base of the transverse process and the superior articular process at the appropriate level, and the needle was advanced until the periosteum contacted, needle placement confirmed with AP oblique and lateral view and after appropriate needle placement confirmed, and after negative aspiration for heme and CSF and there was no paresthesia 1-1/2 mL of Ropivacaine 0.5% mixed with 20 mg Depo-Medrol , then half mL injected at each level after negative aspiration the needle subsequently removed and the same procedure repeated for the left side at left side at L3 , L4 and L5 levels. At the end of the procedure and the needles removed and a bandage applied after the skin was cleaned the cleaning solution patient taken to recovery room in stable condition and monitors in the recovery room for 20-30 minutes and discharged home in stable condition after discharge criteria met and patient w ill follow up with the pain clinic in 2-4 weeks
--- NOTE | 2022-10-10 08:57 | FL ---
Intraoperative/procedural fluoroscopic services were provided for bilateral lumbar facet block. Total fluoroscopy time is 8.5 seconds with a total of 4 submitted images to PACS. Total DAP [id number] mGym2. Please see the operative note for further details.
[2022-10-10 08:59] VITALS: RESP 14
[2022-10-10 09:15] VITALS: BP 102/58; PULSE 60
--- NOTE | 2022-10-10 09:40 | P.PCN ---
Date of Procedure: 10/10/22 Procedure(s) Performed: PREOPERATIVE DIAGNOSIS : 1- Lumbar spondylosis with Facet Arthropathy without myelopathy . 2- Lumber degenerative disc disease POSTOPERATIVE DIAGNOSIS: 1- Lumbar spondylosis with Facet Arthropathy without myelopathy . 2- Lumber degenerative disc disease PROCEDURE: Diagnostic bilateral L3 , L4 , and L5 medial branch block under fluoroscopy guidance(fluoroscopy images available in the radiology Department ) ( To target the facet joint between Bilateral L4- 5 , and L5-S1 )#2nd ANESTHESIA:, Moderate sedation with Versed 1 mg and fentanyl 50 g, sedation started at 09:25,ended at 09:38 EBL: Minimal COMPLICATION: None PROCEDURE INDICATION: Chronic low back pain secondary to Facet arthropathy unresponsive to conservative treatment. PROCEDURE DESCRIPTION: the patient was seen and identified in the preop holding area , risks and benefits and possible complications of the procedure and alternative were discussed with the patient, and the patient agreed to proceed with the procedure and signed the consent and vital signs monitored during the procedure and fluoroscopy was used to maximize the benefit and accuracy of the needle placement, and sedation was given to decrease patient anxiety, patient was taken to the procedure room and placed in prone position vital signs monitored in the back prepped with chlorhexidine X3 then under strict sterile technique using a right oblique fluoroscopy ,the junction of the transverse process and the superior articulating process of the right L3 , L4 , and L5 vertebra which corresponding to the fluoroscopy image of the eye of the [place] dog on the block side for the medial branches and subsequently , after local infiltration of skin and subcu tissuies with Ropivacaine 0.5 % , one mL at each level ,then 22-gauge Quincke-type needles , 3 needle was used , each one of them placed at the junction of the base of the transverse process and the superior articular process at the appropriate level, and the needle was advanced until the periosteum contacted, needle placement confirmed with AP oblique and lateral view and after appropriate needle placement confirmed, and after negative aspiration for heme and CSF and there was no paresthesia 1-1/2 mL of Ropivacaine 0.5% mixed with 20 mg Depo-Medrol , then half mL injected at each level after negative aspiration the needle subsequently removed and the same procedure repeated for the left side at left side at L3 , L4 and L5 levels. At the end of the procedure and the needles removed and a bandage applied after the skin was cleaned the cleaning solution patient taken to recovery room in stable condition and monitors in the recovery room for 20-30 minutes and discharged home in stable condition after discharge criteria met and patient wi ll follow up with the pain clinic in 2-4 weeks
== END ==
LOC: ORPAIN 07:45
PROVIDERS: ATTEND Specialist
DX: M47.816 Spondylosis without myelopathy or radiculopathy, lumbar region (principal); M51.36 Other intervertebral disc degeneration, lumbar region; G89.29 Other chronic pain
CPT/HCPCS: 64493; 64494 ×2; 99152; J2250; J1030; J3010; J2795

== ENCOUNTER → 2022-11-06 | Outpatient (CLI) | payer MEDICARE ==
[2022-11-06 09:57] VITALS: BP 113/76; PULSE 72; RESP 15; TEMP 98.2
--- NOTE | 2022-11-06 13:18 | P.PAINPG ---
PQRS Measure Charge Sheet Comment: A 72 yr old female with a history of severe and chronic LBP x 1 yrsecondary to lumbar DDD and spondylosis with facet arthropathy without myelopathy presents today for evaluation s/p BL MBB L4-L5, L5-S1 #2 where she admits she experienced 80% pain relief x 7 day s/p procedure. Pain level is provoked at 9/10 in intensity, constant, localized in the BL lower lumbar spine, achy/ sharp in character w shooting towards the L hip. Pain is provoked by bending, and bearing weight on L side and walking for periods of 10 min or more. Pain is alleviated with PT w massage x 6 wks in Mar 2022, medications, patches, repositioning and rest. Pt also admits to lower neck pain, 8/10 in intensity, dull, achy, constant w radiation up the L side of neck towards the head. She admits to CESIs in 2019 which alleviated the pain at the time. Oswestry axial pain score of 11. Interventional pain procedures completed include BL TFESI L1-L2, BL MBB L3-L5 x1 Patient is currently on Tyl Arthritis Patient denies any side effects of the medication(s), denies excessive drowsiness or sleepiness, denies suicidal ideation and reports that the current pain medication is helping to control the pain and improve activities of daily living. Patient denies any motor or sensory deficits. Patient denies any fever or night sweats, denies any change in the bowel movements or urination. Physical Examination: -Constitutional: Cooperative. Not in acute distress . - Neurologic: Cranial nerve II to XII intact. No focal neurological def icits. - Psychatric: Alert & oriented x 3. Matching mood & appropriate affect. Judgment and insight intact. - Musculoskeletal: Cervical spine: Muscle bulk/ tone/ strength in the bilateral upper extremities normal Vertebral body tenderness to palpation over Spurling test positive Distraction test positive Facet loading test positive TTP Thoracic spine Muscle bulk / tone/ strength in the bilateral paraspinal muscles normal Vertebral body tender to palpation over Facet loading test positive TTP Lumbar spine: Motor bulk/ tone/ strength lower extremities , thigh and legs : 5/5 Deep tendon reflexes : Normal Knee Jerk. Normal Ankle Jerk . Vertebral body tenderness to palpation over Singer Test positive Lumbar Facet Loading Test positive on L4-L5, L5-S1 Straight Leg Raise: positive at 30 degrees right side/ left side Gaenslen's Test positive Sacral spine : Severe tenderness over the Sacroiliac joint: right side / left side Range of motion: Flexion of the lumbar spine <60 degrees Range of motion: Extension of the lumbar spine <20 degrees Gaenslen's Test positive right side / left side Aleyda test: positive right side / left side Thigh Thrust Test positive right side / left side Sacral Thrust Test positive right side / left side Assessment and plan: Chronic LBP secondary to lumbar DDD, spondylosis with facet arthropathy without myelopathy Recommendation of BL RFA L4-L5, L5-S1. Pt exhibited optimal pain relief w prior facet blocks of the medial branches. Risks, benefits of procedure discussed and pt verbalized understanding. Admits to anticoagulant use or medical history of diabetes. Protocol for discontinuation/ continuation of medications anamaria procedure discussed. Minimal anesthesia provided, if clinically indicated, consisting of Versed and Fentanyl. All questions answered. I have spent less than 30 minutes on patient care today. Dr Dixon was available by phone for the evaluation of this patient. The time was used to review the medical records including relevant urine studies and Prescription history (MAPs), review of the available imaging, evaluation and examination of the patient, coordination of care with the medical staff and if applicable referring physicians, as well as creation of the medical record PQRS Narrative: Smoking Status Never smoker Hx Alcohol Use (MH) No Home Medications: Ambulatory Orders Alendronate Sodium 70 mg PO MANZO 03/24/17 Aspirin EC [Ecotrin] 325 mg PO HS 03/24/17 Metoprolol Succinate (ER) [Toprol Xl] 25 mg PO W/SUPPER 03/24/17 Narinder/D3/Mag11/Zinc/Flatbed Press Operator/Mega/Bor [Caltrate 600+D Plus Tablet] 2 each PO DAILY 05/31/22 Ergocalciferol [Vitamin D2 (1250 Mcg = 46535 Iu)] 1,250 mcg PO MANZO 05/31/22 LORazepam 1 mg PO HS 05/31/22 Levothyroxine Sodium [Synthroid] 100 mcg PO QAM 05/31/22 Multivitamins, Thera [Multivitamin (formulary)] 1 tab PO DAILY 05/31/22 Triple [place] 3,6,9 1 tab PO TID-W/MEALS 05/31/22 Acetaminophen [Tylenol Arthritis] 650 mg PO DIRECTED PRN 10/03/22 Controlled Substance Measures - Controlled Substance Measures Is patient prescribed a controlled substance at discharge?: No
== END ==
LOC: PNWHC3 09:10
PROVIDERS: ATTEND Specialist
DX: M51.37 Other intervertebral disc degeneration, lumbosacral region (principal); M47.817 Spondylosis without myelopathy or radiculopathy, lumbosacral region; G89.29 Other chronic pain; Z79.82 Long term (current) use of aspirin; Z88.2 Allergy status to sulfonamides
CPT/HCPCS: 99211

== ENCOUNTER → 2022-12-19 | Outpatient (CLI) | payer MEDICARE ==
--- NOTE | 2022-12-19 13:35 | P.PAINPG ---
PQRS Measure Charge Sheet Comment: A 72 yr old female with a history of severe and chronic LBP x 1 yrsecondary to lumbar DDD and spondylosis with facet arthropathy without myelopathy presents today for evaluation s/p BL RFA L4-L5, L5-S1. Pt states she experienced 100% pain relief x 4 days s/p procedure. Pain level is provoked at 8/10 in intensity, constant, localized in the BL lower lumbar spine, achy/ sharp in character w shooting towards the back of the LEs. Pain is provoked by bending, bearing weight on L side and walking for periods of 10 min or more, and worse every morning. Pain is alleviated with PT w massage x 6 wks in Mar 2022, medications, patches, hot showers, repositioning and rest. Pt also admits to lower neck pain, 8/10 in intensity, dull, achy, constant w radiation up the L side of neck towards the head. Oswestry axial pain score of 7. Interventional pain procedures completed include CESIs (2018), BL TFESI L1-L2, BL RFA L3-L5 (Nov 2022) Patient is currently on Tyl Arthritis Patient denies any side effects of the medication(s), denies excessive drowsiness or sleepiness, denies suicidal ideation and reports that the current pain medication is helping to control the pain and improve activities of daily living. Patient denies any motor or sensory deficits. Patient denies any fever or night sweats, denies any change in the bowel movements or urination. Physical Examination: -Constitutional: Cooperative. Not in acute distress . - Neurologic: Cranial nerve II to XII intact. No focal neurological deficits. - Psychatric: Alert & oriented x 3. Matching mood & appropriate affect. Judgment and insight intact. - Musculoskeletal: Cervical spine: Muscle bulk/ tone/ strength in the bilateral upper extremities normal Vertebral body tenderness to palpation over Spurling test positive Distraction test positive Facet loading test positive TTP Thoracic spine Muscle bulk / tone/ strength in the bilateral paraspinal muscles normal Vertebral body tender to palpation over Facet loading test positive TTP Lumbar spine: Motor bulk/ tone/ strength lower extremities , thigh and legs : 5/5 Deep tendon reflexes : Normal Knee Jerk. Normal Ankle Jerk . Vertebral body tenderness to palpation over L4 Singer Test positive Lumbar Facet Loading Test positive Straight Leg Raise: positive at 30 degrees right side/ left side Gaenslen's Test positive Sacral spine : Severe tenderness over the Sacroiliac joint: right side / left side Range of motion: Flexion of the lumbar spine <60 degrees Range of motion: Extension of the lumbar spine <20 degrees Gaenslen's Test positive right side / left side Aleyda test: positive right side / left side Thigh Thrust Test positive right side / left side Sacral Thrust Test positive right side / left side Assessment and plan: Chronic LBP secondary to lumbar DDD, spondylosis with facet arthropathy without myelopathy Recommendation of MELODY L4-L5. May need a series of injections for optimal pain relief. Risks, benefits of procedure discussed and pt verbalized understanding. Admits to anticoagulant use or medical history of diabetes. Protocol for discontinuation/ continuation of medications anamaria procedure discussed. Minimal anesthesia provided, if clinically indicated, consisting of Versed and Fentanyl. All questions answered. I have spent less than 30 minutes on patient care today. Dr Dixon was available by phone for the evaluation of this patient. The time was used to review the medical records including relevant urine studies and Prescription his tory (MAPs), review of the available imaging, evaluation and examination of the patient, coordination of care with the medical staff and if applicable referring physicians, as well as creation of the medical record PQRS Narrative: Smoking Status Never smoker Hx Alcohol Use (MH) No Home Medications: Ambulatory Orders Alendronate Sodium 70 mg PO MANZO 03/24/17 Aspirin EC [Ecotrin] 325 mg PO HS 03/24/17 Metoprolol Succinate (ER) [Toprol Xl] 25 mg PO W/SUPPER 03/24/17 Narinder/D3/Mag11/Zinc/Bisque Ware Dipper/Mega/Bor [Caltrate 600+D Plus Tablet] 2 each PO DAILY 05/31/22 Ergocalciferol [Vitamin D2 (1250 Mcg = 79390 Iu)] 1,250 mcg PO MANZO 05/31/22 LORazepam 1 mg PO HS 05/31/22 Levothyroxine Sodium [Synthroid] 100 mcg PO QAM 05/31/22 Multivitamins, Thera [Multivitamin (formulary)] 1 tab PO DAILY 05/31/22 Triple [place] 3,6,9 1 tab PO TID-W/MEALS 05/31/22 Acetaminophen [Tylenol Arthritis] 650 mg PO DIRECTED PRN 10/03/22 Controlled Substance Measures - Controlled Substance Measures Is patient prescribed a controlled substance at discharge?: No
[2022-12-19 13:39] VITALS: BP 118/77; PULSE 77; RESP 16; TEMP 98.3
== END ==
LOC: PNWHC3 13:09
PROVIDERS: ATTEND Specialist
DX: M51.36 Other intervertebral disc degeneration, lumbar region (principal); M47.816 Spondylosis without myelopathy or radiculopathy, lumbar region; G89.29 Other chronic pain; Z79.82 Long term (current) use of aspirin; Z88.2 Allergy status to sulfonamides
CPT/HCPCS: 99211

== ENCOUNTER 2023-01-07 06:48 | Day surgery (SDC) | payer MEDICARE ==
[2023-01-03 10:40] VITALS: BMI 21.2
[2023-01-07] MEDS ORDERED: LACTATED RINGERS 1,000 ML IV SCH (07:00)
[2023-01-07 07:22] VITALS: TEMP 97.5
[2023-01-07] MEDS ORDERED: methylPREDNISolone ACETATE 40 MG/ML 1 ML VIAL ONE (07:46)
[2023-01-07] MEDS ORDERED: IOPAMIDOL M200 10 ML VIAL ONE (07:46)
--- NOTE | 2023-01-07 07:52 | P.PCN ---
Date of Procedure: 01/07/23 Description of Procedure: PREOPERATIVE DIAGNOSIS: lumbar radiculopathy POSTOPERATIVE DIAGNOSIS: Lumbar radiculopathy PROCEDURE 1. Lumbar epidural steroid injection under fluoroscopic guidance at the L4-L5 level. 2. Lumbar epidurogram. Imaging: Fluoroscopy was used, images where saved to the medical record ANESTHESIA: local only EBL: Minimal PROCEDURE INDICATION: The patient with low back pain and radiculitis symptoms unresponsive to conservative treatment. Fluoroscopy was used to optimize visualization of the needle placement and to maximize safety. PROCEDURE DESCRIPTION / TECHNIQUE: The patient was seen and identified in the preoperative area. Risks, benefits, complications including but not limited to infections, bleeding, allergic re action to medications, nerve damage and incomplete pain relief, as well as alternatives to the procedure were discussed with the patient. The patient agreed to proceed with the procedure and signed the consent. IV was started if indicated above, and vital signs were stable. Patient was taken to the OR and time out was completed. The patient was placed in the prone position on procedure table and a pillow was placed under the abdomen to reduce lumbar lordosis. The lumbosacral area was prepped and draped in the usual sterile fashion. Vitals were closely monitored during the procedure. Using anterior-posterior fluoroscopy, the L4-L5 interlaminar space was identified and the skin over this site was marked and then infiltrated with 1% lidocaine subcutaneously. Subsequently, a 20-gauge Tuohy epidural needle was inserted and advanced toward the epidural space using the Loss of resistance technique and guided by AP and lateral fluoroscopy. The correct needle position in the epidural space was verified with the injection of 1 mL of Omnipaque 180 contrast to observe an acceptable epidurogram, after negative aspiration for blood and CSF and in the absence of paresthesias. Again after negative aspiration, a 3 ml mixture containing 40mg of depomedrol and 2 ml of preservative free Normal Saline was injected and a washout of epidurogram was seen. Needle was withdrawn intact, skin was cleansed, and bandages were applied. COMPLICATIONS: None DISPOSITION / PLANS: The patient was placed in a supine position and transferred to the recovery area in a stable condition for observation. There was no evidence of lower extremity motor or sensory deficit after the procedure. Patient was discharged from the recovery room after meeting discharge criteria. Home discharge instructions were given to the patient by the staff. The patient was reexamined prior to discharge. The patient will follow up as directed.
[2023-01-07 08:11] VITALS: BP 116/72; PULSE 75; RESP 15
--- NOTE | 2023-01-07 14:45 | FL ---
Intraoperative/procedural fluoroscopic services were provided for lumbar epidural steroid injection. Total fluoroscopy time is 2.8 seconds with a total of 1 submitted image to PACS. Total DAP 0.61060 mG ym2. Please see the operative note for further details.
== END 2023-01-07 08:14 | disposition home or self-care (01) ==
LOC: ORPAIN 06:48
PROVIDERS: ATTEND Specialist
DX: M54.16 Radiculopathy, lumbar region (principal); Z88.2 Allergy status to sulfonamides; Z79.82 Long term (current) use of aspirin
CPT/HCPCS: 62323; J1030; Q9966

== ENCOUNTER → 2023-02-06 | Outpatient (CLI) | payer MEDICARE ==
[2023-02-06 11:50] VITALS: BP 95/60; PULSE 75; RESP 16; TEMP 98.2
--- NOTE | 2023-02-06 15:33 | P.PAINPG ---
PQRS Measure Charge Sheet Comment: A 72 yr old female with a history of severe and chronic LBP x 1 yrsecondary to lumbar DDD and spondylosis with facet arthropathy without myelopathy presents today for evaluation s/p MELODY L4-L5 #1. Pt states she experienced 80% pain relief x 1 wk s/p procedure. Pain level is provoked at 5/10 in intensity, constant, localized in the BL lower lumbar spine, predominantly axial, achy/ sharp in character w occasional shooting towards the back of the LLE. Pain is provoked by bending, bearing weight on L side and walking for periods of 10 min or more, and worse every morning. Pain is alleviated with PT w massage x 6 wks in Mar 2022, medications, patches, hot showers, repositioning and rest. Oswestry axial pain score of 8. Interventional pain procedures completed include CESIs (2018), BL TFESI L1-L2, BL RFA L3-L5 (Nov 2022), MELODY L4-L5 x1 Patient is currently on Tyl Arthritis Patient denies any side effects of the medication(s), denies excessive drowsiness or sleepiness, denies suicidal ideation and reports that the current pain medication is helping to control the pain and improve activities of daily living. Patient denies any motor or sensory deficits. Patient denies any fever or night sweats, denies any change in the bowel movements or urination. Physical Examination: -Constitutional: Cooperative. Not in acute distress . - Neurologic: Cranial nerve II to XII intact. No focal neurological deficits. - Psychatric: Alert & oriented x 3. Matching mood & appropriate affect. Judgment and insight intact. - Musculoskeletal: Cervical spine: Muscle bulk/ tone/ strength in the bilateral upper extremities normal Vertebral body tenderness to palpation over Spurling test positive Distraction test positive Facet loading test positive TTP Thoracic spine Muscle bulk / tone/ strength in the bilateral paraspinal muscles normal Vertebral body tender to palpation over Facet loading test positive TTP Lumbar spine: Motor bulk/ tone/ strength lower extremities , thigh and legs : 5/5 Deep tendon reflexes : Normal Knee Jerk. Normal Ankle Jerk . Vertebral body tenderness to palpation over L L5-S1 Singer Test positive Lumbar Facet Loading Test positive Straight Leg Raise: positive at 30 degrees right side/ left side Gaenslen's Test positive Sacral spine : Severe tenderness over the Sacroiliac joint: right side / left side Range of motion: Flexion of the lumbar spine <60 degrees Range of motion: Extension of the lumbar spine <20 degrees Gaenslen's Test positive right side / left side Aleyda test: positive right side / left side Thigh Thrust Test positive right side / left side Sacral Thrust Test positive right side / left side Assessment and plan: Chronic LBP secondary to lumbar DDD, spondylosis with facet arthropathy without myelopathy Recommendation of L iliolumbar ligament injection #1. May need a series of injections for optimal pain relief. Risks, benefits of procedure discussed and pt verbalized understanding. Admits to anticoagulant use or medical history of diabetes. Protocol for discontinuation/ continuation of medications anamaria procedure discussed. Minimal anesthesia provided, if clinically indicated, consisting of Versed and Fentanyl. All questions answered. I have spent less than 30 minutes on patient care today. Dr Dixon was available by phone for the evaluation of this patient. The time was used to review the medical records including relevant urine studies and Prescription history (MAPs), review of the available imaging, evaluation and examination of the patient, coordination of care with the medical staff and if applicable referring physicians, as well as creation of the medical record PQRS Narrative: Smoking Status Never smoker Hx Alcohol Use (MH) No Home Medications: Ambulatory Orders Alendronate Sodium 70 mg PO MANZO 03/24/17 Aspirin EC [Ecotrin] 325 mg PO HS 03/24/17 Metoprolol Succinate (ER) [Toprol Xl] 25 mg PO W/SUPPER 03/24/17 Narinder/D3/Mag11/Zinc/Preparation Center Coordinator/Mega/Bor [Caltrate 600+D Plus Tablet] 2 each PO DAILY 05/31/22 Ergocalciferol [Vitamin D2 (1250 Mcg = 00445 Iu)] 1,250 mcg PO MANZO 05/31/22 LORazepam 1 mg PO HS 05/31/22 Levothyroxine Sodium [Synthroid] 100 mcg PO QAM 05/31/22 Multivitamins, Thera [Multivitamin (formulary)] 1 tab PO DAILY 05/31/22 Triple [place] 3,6,9 1 tab PO TID-W/MEALS 05/31/22 Acetaminophen [Tylenol Arthritis] 650 mg PO DIRECTED PRN 10/03/22 Controlled Substance Measures - Controlled Substance Measures Is patient prescribed a controlled substance at discharge?: No
== END ==
LOC: PNWHC3 08:46
PROVIDERS: ATTEND Specialist
DX: M51.37 Other intervertebral disc degeneration, lumbosacral region (principal); M47.817 Spondylosis without myelopathy or radiculopathy, lumbosacral region; Z88.2 Allergy status to sulfonamides
CPT/HCPCS: 99211

== ENCOUNTER → 2023-12-03 | Outpatient (CLI) | payer MEDICARE | END | disposition home or self-care (01) | LOC: RADMAMWWP 09:46 | PROVIDERS: ATTEND Family Medicine | DX: Z53.9 Procedure and treatment not carried out, unspecified reason (principal) ==

== ENCOUNTER 2023-12-08 07:54 | Emergency (ER) | payer MEDICARE ==
[2023-12-08 08:05] VITALS: RESP 18
[2023-12-08] MEDS: HYDROcodone/APAP 5-325MG 1 EACH TAB PO STA (08:32)
[2023-12-08] MEDS: KETOROLAC 15 MG/ML 1 ML VIAL IM STA (08:38)
[2023-12-08] MEDS: DEXAMETHASONE SOD PHOSPHATE 10 MG/ML 1 ML VIAL IM STA (08:38)
--- NOTE | 2023-12-08 08:43 | ED ---
Back Pain HPI - General Chief Complaint: Back Pain/Injury Stated Complaint: back pain Time Seen by Provider: 12/08/23 08:06 Source: patient, RN notes reviewed Mode of arrival: ambulatory Limitations: no limitations - History of Present Illness Initial Comments: This is a 73-year-old female who presents to the emergency department for lower back pain. Reports a history of chronic back pain and sciatica, but states that it has been much worse over the last 3 days. Denies any injuries. States that this is in the center of the back and seems to go to both sides. Denies any radiation down her legs. Denies any loss of bowel/bladder control or saddle anesthesia. She tried taking Aleve without any relief in symptoms. MD Complaint: back pain - Related Data Home Medications Medication Instructions Recorded Confirmed Alendronate Sodium 70 mg PO MANZO 03/24/17 01/07/23 Aspirin EC [Ecotrin] 325 mg PO HS 03/24/17 01/03/23 Metoprolol Succinate (ER) [Toprol 25 mg PO W/SUPPER 03/24/17 01/07/23 Xl] Narinder/D3/Mag11/Zinc/Gas Appliance Installer/Mega/Bor 2 each PO DAILY 05/31/22 01/07/23 [Caltrate 600+D Plus Tablet] Ergocalciferol [Vitamin D2 (1250 1,250 mcg PO MANZO 05/31/22 01/07/23 Mcg = 24447 Iu)] LORazepam 1 mg PO HS 05/31/22 01/07/23 Levothyroxine Sodium [Synthroid] 100 mcg PO QAM 05/31/22 01/07/23 Multivitamins, Thera [Multivitamin 1 tab PO DAILY 05/31/22 01/07/23 (formulary)] Triple [place] 3,6,9 1 tab PO TID-W/MEALS 05/31/22 01/07/23 Acetaminophen [Tylenol Arthritis] 650 mg PO DIRECTED PRN 10/03/22 01/07/23 Previous Rx's Medication Instructions Recorded Lidocaine 5% Patch [Lidoderm 5% 1 patch TOPICAL DAILY PRN #30 patch 12/08/23 Patch] methocarbamoL [Robaxin] 1,000 mg PO TID PRN #30 tab 12/08/23 predniSONE [Deltasone] 20 mg PO BID 5 Days #10 tab 12/08/23 Allergies Allergy/AdvReac Type Severity Reaction Status Date / Time Sulfa (Sulfonamide Allergy Rash/Hives Verified 12/08/23 08:05 Antibiotics) Review of Systems ROS Statement: Those systems with pertinent positive or pertinent negative responses have been documented in the HPI. ROS Other: All systems not noted in ROS Statement are negative. Past Medical History Past Medical History: Atrial Fibrillation, Thyroid Disorder Additional Past Medical History / Comment(s): migraine headache, paroxysmal atrial fibrillation, MNG/hypothyroidism. History of Any Multi-Drug Resistant Organisms: None Reported Past Surgical History: Orthopedic Surgery Additional Past Surgical History / Comment(s): oophorectomy Past Anesthesia/Blood Transfusion Reactions: No Reported Reaction Additional Past Anesthesia/Blood Transfusion Reaction / Comment(s): NEVER HAD TRANSFUSION Past Psychological History: No Psychological Hx Reported Smoking Status: Former smoker Past Alcohol Use History: None Reported Past Drug Use History: None Reported - Past Family History Mother Family Medical History: Hypertension Additional Family Medical History / Comment(s): FROM AMOLOIDOSIS- VITAL ORGAN SHUTDOWN. Father Family Medical History: COPD, Deep Vein Thrombosis (DVT) Sister(s) Family Medical History: Cancer Additional Family Medical History / Comment(s): Brain cancer. Daughter(s) Family Medical History: No Reported History Son(s) Family Medical History: No Reported History General Exam Limitations: no limitations General appearance: alert, in no apparent distress Head exam: Present: atraumatic, normocephalic, normal inspection Respiratory exam: Present: normal lung sounds bilaterally. Absent: respiratory distress, wheezes, rales, rhonchi, stridor Cardiovascular Exam: Present: regular rate, normal rhythm, normal heart sounds. Absent: systolic murmur, diastolic murmur, rubs, gallop, clicks Back exam: Present: other (Tenderness to palpation over the center of the lower back) Neurological exam: Present: alert, oriented X3, CN II-XII intact Psychiatric exam: Present: normal affect, normal mood Skin exam: Present: warm, dry, intact, normal color. Absent: rash Course Vital Signs 12/08/23 12/08/23 08:03 10:05 Temperature 98.2 F 98.0 F Pulse Rate 81 80 Respiratory 18 18 Rate Blood Pressure 108/60 112/64 O2 Sat by Pulse 98 97 Oximetry Medical Decision Making - Medical Decision Making This is a 73-year-old female who presents to the emergency department for back pain. Was pt. sent in by a medical professional or institution? @ -No Did you speak to anyone other than the patient for history? @ -No Did you review nursing and triage notes? @ -Yes, and I agree, it is accurate with regards to the patient's symptoms. Were old charts reviewed? @ -No Differential Diagnosis? @ -Differential Back Pain: Strain, zoster, cauda equina syndrome, epidural abscess, vertebral osteomyelitis, discitis, fracture, subluxation, disc herniation, DJD, spinal stenosis, dissection, AAA, pancreatitis, peptic ulcer disease, pyelonephritis, kidney stone, this is not meant to be an all-inclusive list. EKG interpreted by me (3pts min.)? @ -Not obtained X-rays interpreted by me (1pt min.)? @ -X-ray of the lumbar spine obtained. My interpretation identifies no acute fractures. CT interpreted by me (1pt min.)? @ -Not obtained U/S interpreted by me (1pt. min.)? @ -Not obtained What testing was considered but not performed? (CT, X-rays, U/S, labs)? Why? @ -None What meds were considered but not given? Why? @ -None Did you discuss the management of the patient with other professionals? @ -No Did you reconcile home meds? @ -No Was smoking cessation discussed for >3mins.? @ -No Was critical care preformed (if so, how long)? @ -No Were there social determinants of health that impacted care today? How? (Homelessness, low income, unemployed, alcoholism, drug addiction, transpo rtation, low edu. Level, literacy, decrease access to med. care, [facility], rehab)? @ -No Was there de-escalation of care discussed even if they declined? (Discuss DNR or withdrawal of care, Hospice)? @ -No What co-morbidities impacted this encounter? (DM, HTN, Smoking, COPD, CAD, Cancer, CVA, Hep., AIDS, mental health diagnosis, sleep apnea, morbid obesity)? @ -Osteoarthritis Was patient admitted / discharged? @ -Discharged. X-ray of the lumbar spine obtained revealing degenerative changes without any acute process. Patient had no red flag signs or symptoms such as loss of bowel/bladder control or saddle anesthesia. She likely has an exacerbation of a chronic issue. Pain was managed in the emergency department. Prescription for prednisone, Robaxin, and lidocaine patches provided. Advised close follow-up with her PCP for reevaluation. Patient discharged home in stable condition. Case discussed with ED attending Dr. Engel. Return precautions reviewed in depth, the patient is instructed to return to the emergency department with any new, worsening, or concerning symptoms. Patient verbalized understanding. Undiagnosed new problem with uncertain prognosis? @ -None Drug Therapy requiring intensive monitoring for toxicity (Heparin, Nitro, Insulin, Cardizem)? @ -None Were any procedures done? @ -None Diagnosis/symptom? @ -Low back pain Acute, or Chronic, or Acute on Chronic? @ -Acute Uncomplicated (without systemic symptoms) or Complicated (systemic symptoms)? @ -Uncomplicated Side effects of treatment? @ -None Exacerbation, Progression, or Severe Exacerbation] @ -Not applicable Poses a threat to life or bodily function? @ -No - Radiology Data Radiology results: report reviewed, image reviewed Disposition Clinical Impression: Strain of lumbar region Disposition: HOME SELF-CARE Instructions (If sedation given, give patient instructions): Acute Low Back Pain (ED) Additional Instructions: Return to the emergency department with any new, worsening, or concerning symptoms. Take the prednisone twice daily for 5 days. Take the Robaxin as 1 to 2 tablets up to 3-4 times daily. Be aware that this may make you drowsy. Apply the lidocaine patches daily. Follow up with your primary care provider in 1-2 days. Prescriptions: predniSONE [Deltasone] 20 mg PO BID 5 Days #10 tab Lidocaine 5% Patch [Lidoderm 5% Patch] 1 patch TOPICAL DAILY PRN #30 patch PRN Reason: Pain methocarbamoL [Robaxin] 1,000 mg PO TID PRN #30 tab PRN Reason: Pain Is patient prescribed a controlled substance at d/c from ED?: No Referrals: Lowell Llanes DO [Primary Care Provider] - 1-2 days Time of Disposition: 09:57
[2023-12-08] MEDS: methocarbamoL 750 MG TAB PO STA (09:03)
--- NOTE | 2023-12-08 09:24 | XR ---
EXAMINATION TYPE: XR lumbar spine 2 or 3V DATE OF EXAM: 12/08/2023 CLINICAL HISTORY: 05/27/2014 TECHNIQUE: Three views of the lumbar spine are submitted. COMPARISON: None. FINDINGS: There are 5 lumbar type vertebral bodies identified. Curvature convex to the right. The lumbar spine shows satisfactory alignment without evidence of acute fracture or dislocation. Vertebral body height s are within normal limits. Moderate multilevel degenerative disc space narrowing. The overlying s oft tissue appears unremarkable. IMPRESSION: No acute fracture or dislocation is seen in the lumbar spine. ICD 10 NO FRACTURE, INITIAL EVALUATION [facility], , 12/08/2023 9:22 AM
[2023-12-08] MEDS: ACET/COD 300 MG/30 MG STARTER PACK 6 TAB BTL PO STA (10:02)
[2023-12-08 10:06] VITALS: BP 112/64; PULSE 80; TEMP 98
== END 2023-12-08 10:06 | disposition home or self-care (01) ==
LOC: EC 07:54
CPT/HCPCS: 72100; 96372; 99284

== ENCOUNTER → 2023-12-11 | Outpatient (CLI) | payer MEDICARE ==
--- NOTE | 2023-12-11 09:04 | MM ---
Reason for Exam: Follow-up at short interval from prior study. Last screening mammogram was performed 6 month(s) ago. Patient History: Menarche at age 13. First Full-Term at age 21. Postmenopausal. Patient has history of breast feeding. Patient used Estrogen and Progesterone for 2 years. Maternal aunt had breast cancer. Risk Values: Christy 5 year model risk: 1.6%. NCI Lifetime model risk: 3.9%. Prior Study Comparison: 03/16/2020 Bilateral Screening Mammogram, [facility]. 06/06/2021 Bilateral Screening Mammogram, [facility]. 06/07/2022 Bilateral MG 3D screening mammo w/cad, [facility]. 06/19/2023 Bilateral MG 3D screening mammo w/cad, [facility]. Tissue Density: Left: There are scattered areas of fibroglandular density. Findings: No evidence for mass or distortion. No suspicious calcifications. Overall Assessment: Negative, BI-RAD 1 Management: Screening Mammogram of both breasts in 6 months. . Results were given to the patient verbally at the time of exam. Patient should continue monthly self-breast exams. A clinical breast exam by your physician is recommended on an annual basis. This exam should not preclude additional follow-up of suspicious palpable abnormalities. Note on Christy scores and lifetime risk: 1. A Christy score greater than 3% is considered moderate risk. If this is the case, consider specialist referral to assess eligibility for a risk reducing agent. 2. If overall lifetime risk for the development of breast cancer is 20% or higher, the patient may qualify for future screening with alternating mammogram and breast MRI. [facility], , 12/11/2023 9:00 AM. Electronically signed and approved by: Derek Patel M.D. Radiologis
== END | disposition home or self-care (01) ==
LOC: RADMAMWWP 08:27
PROVIDERS: ATTEND Family Medicine
CPT/HCPCS: 77061; 77065

== ENCOUNTER → 2024-01-05 | Outpatient (CLI) | payer MEDICARE ==
[~2024-01-05] MED LIST changes: -IV FLUID CONTINUATION 1,000 ML IV ONE; -LACTATED RINGERS 1,000 ML IV ONE; -LACTATED RINGERS 1,000 ML IV SCH; -LIDOCAINE 1% (10MG/ML) FOR IV START INTRADERMA PRN; -MIDAZOLAM 2 MG/2 ML VIAL ONE; -ROPIVACAINE 5 MG/ML 20 ML AMPULE ONE; +SODIUM CHLORIDE 0.9% 500 ML 500 ML in EMPTY BAG 1 BAG IV PRN; -fentaNYL (PF) 50 MCG/ML 2 ML AMP ONE; -methylPREDNISolone ACETATE 40 MG/ML 1 ML VIAL ONE
[2024-01-05 13:37] VITALS: BP 95/53; PULSE 76; RESP 16; TEMP 97.7
[2024-01-05] MEDS: SODIUM CHLORIDE 0.9% 250 ML in EMPTY BAG 1 BAG IV PRN (13:38)
[2024-01-05] MEDS: ZOLEDRONIC ACID 5 MG in SODIUM CHLORIDE 0.9% 100 ML IV NR (13:39)
== END ==
LOC: PROCWHC3 13:06
PROVIDERS: ATTEND Family Medicine
DX: M81.0 Age-related osteoporosis without current pathological fracture (principal)
CPT/HCPCS: 96365; J3489

== ENCOUNTER → 2024-03-10 | Outpatient (CLI) | payer MEDICARE ==
[2024-03-10 10:45] VITALS: BP 100/69; PULSE 68; RESP 16; TEMP 97.6
--- NOTE | 2024-03-10 15:18 | P.PAINPG ---
PQRS Measure Charge Sheet Comment: A 74 yr old female with a history of severe and chronic LBP x 1 yrsecondary to radiculopathy, spondylosis with facet arthropathy without myelopathy, L Sacroiliitis presents today for evaluation. Pain level is provoked at 6 /10 in intensity, constant, localized in the L lumbar spine, predominantly axial, sharp in character w occasional shooting towards the L hip. Pain is provoked by sitting on L side for periods > 10 min. Pain is alleviated with PT w massage x 6 wks in Mar 2022, medications, patches, hot showers, repositioning and rest. Oswestry axial pain score of 8. Interventional pain procedures completed include CESIs (2018), BL TFESI L1-L2, BL RFA L3-L5 (Nov 2022), MELODY L4-L5 x1 Patient is currently on Tyl Arthritis Patient denies any side effects of the medication(s), denies excessive drowsiness or sleepiness, denies suicidal ideation and reports that the current pain medication is helping to control the pain and improve activities of daily living. Patient denies any motor or sensory deficits. Patient denies any fever or night sweats, denies any change in the bowel movements or urination. Physical Examination: -Constitutional: Cooperative. Not in acute distress . - Neurologic: Cranial nerve II to XII intact. No focal neurological deficits. - Psychatric: Alert & oriented x 3. Matching mood & appropriate affect. Judgment and insight intact. - Musculoskeletal: Cervical spine: Muscle bulk/ tone/ strength in the bilateral upper extremities normal Vertebral body tenderness to palpation over Spurling test positive Distraction test positive Facet loading test positive TTP Thoracic spine Muscle bulk / tone/ strength in the bilateral paraspinal muscles normal Vertebral body tender to palpation over Facet loading test positive TTP Lumbar spine: Motor bulk/ tone/ strength lower extremities , thigh and legs : 5/5 Deep tendon reflexes : Normal Knee Jerk. Normal Ankle Jerk . Vertebral body tenderness to palpation over L L5-S1 Singer Test positive Lumbar Facet Loading Test positive Straight Leg Raise: positive at 30 degrees right side/ left side Gaenslen's Test positive Sacral spine : Severe tenderness over the Sacroiliac joint: right side / left side Range of motion: Flexion of the lumbar spine <60 degrees Range of motion: Extension of the lumbar spine <20 degrees Gaenslen's Test positive right side / left side Aleyda test: positive right side / left side Thigh Thrust Test positive right side / left side Sacral Thrust Test positive right side / left side Imaging: MRI non contrast lumbar spine from 04/05/22 reviewed Assessment and plan: Chronic LBP secondary to radiculopathy, spondylosis with facet arthropathy without myelopathy, L Sacroiliitis Recommendation of L SI injection #1. Risks, benefits of procedure discussed and pt verbalized understanding. Admits to anticoagulant use or medical history of diabetes. Protocol for discontinuation/ continuation of medications anamaria procedure discussed. All questions answered. I have spent less than 30 minutes on patient care today. Dr Dixon was available by phone for the evaluation of this patient. The time was used to review the medical records including relevant urine studies and Prescription history (MAPs), review of the available imaging, evaluation and examination of the patient, coordination of care with the medical staff and if applicable referring physicians, as well as creation of the medical record PQRS Narrative: Smoking Status Never smoker Hx Alcohol Use (MH) No Home Medications: Ambulatory Orders Alendronate Sodium 70 mg PO MANZO 03/24/17 Aspirin EC [Ecotrin] 325 mg PO HS 03/24/17 Metoprolol Succinate (ER) [Toprol Xl] 25 mg PO W/SUPPER 03/24/17 Narinder/D3/Mag11/Zinc/Sales Representative [employer]/Mega/Bor [Caltrate 600+D Plus Tablet] 2 each PO DAILY 05/31/22 Ergocalciferol [Vitamin D2 (1250 Mcg = 06361 Iu)] 1,250 mcg PO MANZO 05/31/22 LORazepam 1 mg PO HS 05/31/22 Levothyroxine Sodium [Synthroid] 100 mcg PO QAM 05/31/22 Multivitamins, Thera [Multivitamin (formulary)] 1 tab PO DAILY 05/31/22 Triple [place] 3,6,9 1 tab PO TID-W/MEALS 05/31/22 Acetaminophen [Tylenol Arthritis] 650 mg PO DIRECTED PRN 10/03/22 Lidocaine 5% Patch [Lidoderm 5% Patch] 1 patch TOPICAL DAILY PRN #30 patch 12/08/23 Controlled Substance Measures - Controlled Substance Measures Is patient prescribed a controlled substance at discharge?: No
== END ==
LOC: PNWHC3 09:56
PROVIDERS: ATTEND Specialist
DX: M46.1 Sacroiliitis, not elsewhere classified (principal); M47.819 Spondylosis without myelopathy or radiculopathy, site unspecified; G89.29 Other chronic pain; Z88.2 Allergy status to sulfonamides
CPT/HCPCS: 99211

== ENCOUNTER → 2024-08-20 | Outpatient (CLI) | payer MEDICARE ==
--- NOTE | 2024-08-20 09:39 | MM ---
Reason for Exam: Screening (asymptomatic). Last mammogram was performed 1 year(s) and 2 month(s) ago. Patient History: Menarche at age 13. First Full-Term at age 21. Postmenopausal. Patient has history of breast feeding. Patient used Estrogen and Progesterone for 2 years. Maternal aunt had breast cancer. Risk Values: Christy 5 year model risk: 1.6%. NCI Lifetime model risk: 3.7%. Prior Study Comparison: 06/07/2022 Bilateral MG 3D screening mammo w/cad, [facility]. 06/19/2023 Bilateral MG 3D screening mammo w/cad, [facility]. 12/11/2023 Left MG 3D diag mammo w/cad , [facility]. Tissue Density: There are scattered areas of fibroglandular density. Findings: Analyzed By CAD. There is no suspicious group of microcalcifications or new suspicious mass in either breast. Overall Assessment: Negative, BI-RAD 1 Management: Screening Mammogram of both breasts in 1 year. Patient should continue monthly self-breast exams. A clinical breast exam by your physician is recommended on an annual basis. This exam should not preclude additional follow-up of suspicious palpable abnormalities. Note on Christy scores and lifetime risk: 1. A Christy score greater than 3% is considered moderate risk. If this is the case, consider specialist referral to assess eligibility for a risk reducing agent. 2. If overall lifetime risk for the development of breast cancer is 20% or higher, the patient may qualify for future screening with alternating mammogram and breast MRI. [facility], , 08/20/2024 9:36 AM. Electronically signed and approved by: Jw Fisher M.D. Radiologist
== END | disposition home or self-care (01) ==
LOC: RADMAMWWP 09:17
PROVIDERS: ATTEND Family Medicine
DX: Z12.31 Encounter for screening mammogram for malignant neoplasm of breast (principal); R92.323 Mammographic fibroglandular density, bilateral breasts; Z78.0 Asymptomatic menopausal state; Z80.3 Family history of malignant neoplasm of breast
CPT/HCPCS: 77063; 77067